=== PATIENT | male | born 1990 ===

== ENCOUNTER 2017-05-28 09:48 | Emergency (ER) | payer OTHER ==
[~2017-05-28] VITALS: Ht 172.7 cm; Wt 88.5 kg
[2017-05-28] MEDS ORDERED: LACTATED RINGERS 1,000 ML IV ONE ×2 (11:20→13:45)
[2017-05-28] MEDS ORDERED: ONDANSETRON 4 MG/2 ML (SDV) Z0FRAN IVP ONE (13:45)
[2017-05-28 13:50] LABS: BASOPHILS % (AUTO) 0 % (0-10); EOSINOPHILS # (AUTO) 0.1 10^3/uL (0.0-0.3); EOSINOPHILS % (AUTO) 0 % (0-10); HEMATOCRIT 49 % (40-54); HEMOGLOBIN 17.4 G/DL (13.3-17.7); LYMPHOCYTES # (AUTO) 0.4 X 10^3 (1.0-4.0); LYMPHOCYTES % (AUTO) 3 % (12-44); MEAN CORPUSCULAR HEMOGLOBIN 31 PG (25-34); MEAN CORPUSCULAR HGB CONC 36 G/DL (32-36); MEAN CORPUSCULAR VOLUME 87 FL (80-99); MEAN PLATELET VOLUME 10.8 FL (7.4-10.4); MONOCYTES # (AUTO) 0.4 X 10^3 (0.0-1.0); MONOCYTES % (AUTO) 4 % (0-12); NEUTROPHILS # (AUTO) 10.4 X 10^3 (1.8-7.8); NEUTROPHILS % (AUTO) 93 % (42-75); PLATELET COUNT 191 10^3/uL (130-400); RED BLOOD COUNT 5.61 10^6/uL (4.35-5.85); RED CELL DISTRIBUTION WIDTH 12.9 % (10.0-14.5); WHITE BLOOD COUNT 11.2 10^3/uL (4.3-11.0)
[2017-05-28] MEDS ORDERED: ONDA4TAB8 PO (13:52)
--- NOTE | 2017-05-28 13:52 | ED GI ---
General Chief Complaint: Abdominal/GI Problems Stated Complaint: poss food poisoning Nursing Triage Note: PT REPORTS ATE SOME PORK FROM [employer] AT 2100 LAST NIGHT AND STARTED GETTING SICK AROUND 0500 THIS AM. PT REPORTS HAS HAD DIAHRREA SEVEN TIMES SINCE AND HAS VOMITED TWELVE TIMES SINCE. PT REPORTS HE CANNOT KEEP ANYTHING DOWN. PT REPORTS HIS COWORKER ATE A SMALL BITE WELL AND GOT SICK BUT HAS STARTED TO FEEL BETTER. Sepsis Screen: No Definite Risk Source of Information: Patient Exam Limitations: No Limitations History of Present Illness Date Seen by Provider: May 28, 2017 Time Seen by Provider: 13:39 Initial Comments Patient presents to ER by private conveyance with a chief complaint that yesterday at about 7:30 he sat down to eat dinner at [employer] in [place]. They got out of there about 9:00 at night and within about a half an hour he started having nonbloody diarrhea. He had pull a sausage and brisk. No one else ate the same meats that he ate in his constitution party and none of them had any problems with diarrhea or nausea. He does not have a history of irritable bowel syndrome, inflammatory bowel syndrome and has had no trauma. He's had no fevers. He said he was so tired that he just fell asleep at them when he woke up in the middle the night he started having nausea as well as diarrhea and vomiting and diarrhea. There is no blood in the emesis. He is not able to keep any fluids down. Allergies and Home Medications Allergies Coded Allergies: No Known Drug Allergies (Unverified , 05/28/17) Home Medications Ondansetron 4 Mg Tab.rapdis, 4 MG PO Q6H PRN for NAUSEA/VOMITING-1ST LINE, #14 Ref 0 Prescribed by: RENETTA BOSS on 05/28/17 1352 Review of Systems Constitutional: chills, No diaphoresis, No fever, No malaise EENTM: No Blurred Vision, No Double Vision Respiratory: Denies Cough, Denies Shortness of Air Cardiovascular: Denies Chest Pain, Denies Lightheadedness Gastrointestinal: Denies Abdomen Distended, Abdominal Pain (mild epigastric tenderness), Diarrhea, Nausea, Vomiting Genitourinary: Denies Burning, Denies Discharge Past [id number] Hx Patient Social History Alcohol Use: Denies Use Recreational Drug Use: No Smoking Status: Never a Smoker Recent Foreign Travel: No Contact w/Someone Who Travel: No Recent Infectious Disease Expo: No Physical Exam Vital Signs VS - Last 72 Hours, by Label 05/28/17 11:08 Temp 98.8 Pulse 98 Resp 20 B/P (MAP) 113/71 (85) Pulse Ox 97 Capillary Refill : Less Than 3 Seconds General Appearance: WD/WN, mild distress HEENT: PERRL/EOMI, pharynx normal (oral mucosa is dry) Neck: supple, normal inspection Respiratory: no respiratory distress, no accessory muscle use Cardiovascular: normal peripheral pulses, regular rate, rhythm Peripheral Pulses: 2+ Radial Pulses (R), 2+ Radial Pulses (L) Gastrointestinal: normal bowel sounds, soft, tenderness (mild epigastric tenderness to palpation) Extremities: normal inspection, normal capillary refill Neurologic/Psychiatric: alert, normal mood/affect, oriented x 3 Skin: normal color, warm/dry Progress/Results/Core Measures Results/Orders Lab Results Laboratory Tests Test 05/28/17 11:25 Range/Units White Blood Count 11.2 H 4.3-11.0 10^3/uL Red Blood Count 5.61 4.35-5.85 10^6/uL Hemoglobin 17.4 13.3-17.7 G/DL Hematocrit 49 40-54 % Mean Corpuscular Volume 87 80-99 FL Mean Corpuscular Hemoglobin 31 25-34 PG Mean Corpuscular Hemoglobin Concent 36 32-36 G/DL Red Cell Distribution Width 12.9 10.0-14.5 % Platelet Count 191 130-400 10^3/uL Mean Platelet Volume 10.8 H 7.4-10.4 FL Neutrophils (%) (Auto) 93 H 42-75 % Lymphocytes (%) (Auto) 3 L 12-44 % Monocytes (%) (Auto) 4 0-12 % Eosinophils (%) (Auto) 0 0-10 % Basophils (%) (Auto) 0 0-10 % Neutrophils # (Auto) 10.4 H 1.8-7.8 X 10^3 Lymphocytes # (Auto) 0.4 L 1.0-4.0 X 10^3 Monocytes # (Auto) 0.4 0.0-1.0 X 10^3 Eosinophils # (Auto) 0.1 0.0-0.3 10^3/uL Basophils # (Auto) 0.0 0.0-0.1 10^3/uL Neutrophils % (Manual) 82 % Lymphocytes % (Manual) 11 % Monocytes % (Manual) 6 % Eosinophils % (Manual) 0 % Basophils % (Manual) 1 % Blood Morphology Comment NORMAL Sodium Level 140 135-145 MMOL/L Potassium Level 4.1 3.6-5.0 MMOL/L Chloride Level 104 98-107 MMOL/L Carbon Dioxide Level 24 21-32 MMOL/L Anion Gap 12 5-14 MMOL/L Blood Urea Nitrogen 16 7-18 MG/DL Creatinine 0.87 0.60-1.30 MG/DL Estimat Glomerular Filtration Rate > 60 BUN/Creatinine Ratio 18 Glucose Level 93 70-105 MG/DL Calcium Level 10.0 8.5-10.1 MG/DL Total Bilirubin 1.3 H 0.1-1.0 MG/DL Aspartate Amino Transf (AST/SGOT) 33 5-34 U/L Alanine Aminotransferase (ALT/SGPT) 30 0-55 U/L Alkaline Phosphatase 50 40-136 U/L Total Protein 7.8 6.4-8.2 GM/DL Albumin 4.8 H 3.2-4.5 GM/DL My Orders Orders - RENETTA BOSS Ekg Tracing (05/28/17 09:58) Saline Lock/Iv-Start (05/28/17 11:20) Lactated Ringers (Lr 1000 Ml Iv Solution (05/28/17 11:20) Cbc With Automated Diff (05/28/17 13:45) Comprehensive Metabolic Panel (05/28/17 13:45) Lactated Ringers (Lr 1000 Ml Iv Solution (05/28/17 13:45) Ondansetron Injection (Zofran Injectio (05/28/17 13:45) Manual Differential (05/28/17 11:25) Medications Given in ED Current Medications Medications Dose Ordered Sig/Chas Route Start Time Stop Time Status Last Admin Dose Admin Lactated Ringer's 1,000 ml @ 0 mls/hr Q0M ONCE IV 05/28/17 11:20 05/28/17 11:22 DC 05/28/17 11:24 0 MLS/HR Lactated Ringer's 1,000 ml @ 0 mls/hr Q0M ONCE IV 05/28/17 13:45 05/28/17 13:47 DC 05/28/17 14:08 0 MLS/HR Ondansetron HCl 4 mg ONCE ONCE IVP 05/28/17 13:45 05/28/17 13:47 DC 05/28/17 14:08 4 MG Vital Signs/I&O Vital Sign - Last 12Hours 05/28/17 11:08 Temp 98.8 Pulse 98 Resp 20 B/P (MAP) 113/71 (85) Pulse Ox 97 Blood Pressure Mean: 85 Progress Note #1: Time: 13:48 Progress Note History and presentation is consistent with a preformed toxin ingestion. We'll control his nausea give him fluids and encourage him to flush his bowels with lots of sports drinks. It is nonbloody and less than 1 day in duration so no stool studies are necessary. Progress Note #2: Time: 14:46 Progress Note Patient's nausea and vomiting has subsided. He feels much better and is ready to go home. Departure Impression Impression: Primary Impression: Gastroenteritis and colitis, toxic Disposition: 01 HOME, SELF-CARE Condition: Improved Departure-Patient Inst. Decision time for Depature: 14:47 Referrals: NO,LOCAL PHYSICIAN (PCP/Family) Primary Care Physician Patient Instructions: Viral Gastroenteritis Add. Discharge Instructions: Drink lots of fluids. Avoid caffeine. Sports drinks especially Gatorade or Powerade mixed half with water or useful. Do not take anything to stop your diarrhea for the first 2 days. Use the Zofran every 6 hours as needed to control your nausea. If you begin develop high fevers or have bloody diarrhea or your symptoms persist for more than a week then you should follow up with your primary care physician. All discharge instructions reviewed with patient and/or family. Voiced understanding. Scripts Ondansetron (Zofran Odt) 4 Mg Tab.rapdis 4 MG PO Q6H Y for NAUSEA/VOMITING-1ST LINE, #14 TAB 0 Refills Prov: RENETTA BOSS 05/28/17 RENETTA BOSS May 28, 2017 13:52
[2017-05-28 14:01] LABS: ALANINE AMINOTRANSFERASE 30 U/L (0-55); ALBUMIN 4.8 GM/DL (3.2-4.5); ALKALINE PHOSPHATASE 50 U/L (40-136); BILIRUBIN,TOTAL 1.3 MG/DL (0.1-1.0); BUN/CREATININE RATIO 18; CARBON DIOXIDE 24 MMOL/L (21-32); CHLORIDE 104 MMOL/L (98-107); CREATININE SERUM 0.87 MG/DL (0.60-1.30); GFR ESTIMATED > 60; GLUCOSE 93 MG/DL (70-105); POTASSIUM 4.1 MMOL/L (3.6-5.0); SODIUM 140 MMOL/L (135-145); TOTAL PROTEIN 7.8 GM/DL (6.4-8.2)
[2017-05-28 14:11] LABS: BASOPHILS % (MANUAL) 1 %; EOSINOPHILS % (MANUAL) 0 %; LYMPHOCYTES % (MANUAL) 11 %; MONOCYTES % (MANUAL) 6 %; NEUTROPHILS % (MANUAL) 82 %; RBC MORPH NORMAL
[2017-05-28 14:53] VITALS: BP 112/62
== END 2017-05-28 14:53 | disposition home or self-care (01) ==
LOC: ER 09:53
DX: T62.8X1A Toxic effect of other specified noxious substances eaten as food, accidental (unintentional), initial encounter (principal); K52.1 Toxic gastroenteritis and colitis
CPT/HCPCS: 36415; 80053; 85007; 85027; 96361; 96374